=== PATIENT | male | born 1990 | race Caucasian/White ===

== ENCOUNTER 2017-08-28 16:40 | Emergency (ER) | payer BC ==
[2017-08-28 17:38] VITALS: BP 162/102
[2017-08-28] MEDS ORDERED: Tetan/Diph/Pertus SYR(Tdap)* 0.5 ML SYR(BOOSTRIX) use SYR IM ONE (17:44)
--- NOTE | 2017-08-28 18:13 | UC ---
Bite Injury/Animal HPI - HPI Summary HPI Summary: 27 YO MALE WAS MOWING HIS YARD [employer]HB[employer] DOG BIT HIM ON THE ANKLE (L) Td NOT UTD - History of Current Complaint Chief Complaint: UCBiteInjury Stated Complaint: DOGBITE LEFT ANKLE Time Seen by Provider: 08/28/17 18:01 Hx Obtained From: Patient Severity Currently: None Severity Initially: Mild Pain Intensity: 0 Pain Scale Used: 0-10 Numeric Onset/Duration: Sudden Onset Type of Bite: Animal Has Animal Been Immunized?: Yes Character: Puncture Aggravating Factor(s): Nothing Alleviating Factor(s): Nothing Associated Signs And Symptoms: Positive: Negative Hx of Bite: Provoked by: - [employer] Animal Available for Observation: Yes Animal Control Notified: Yes - Allergies/Home Medications Allergies/Adverse Reactions: Allergies Allergy/AdvReac Type Severity Reaction Status Date / Time shell fish Allergy Intermediate Hives Uncoded 08/28/17 17:39 Home Medications: Home Medications Omeprazole CAP* [Prilosec CAP* 20 MG] 20 mg PO DAILY PRN 08/28/17 [History Confirmed 08/28/17] PMH/Surg Hx/FS Hx/Imm Hx Previously Healthy: Yes Cardiovascular History: Hypertension - Surgical History Surgical History: Yes Surgery Procedure, Year, and Place: pilonidal cyst 2003- - Family History Known Family History: Positive: Hypertension Family History: NON CONTRIBUTORY - Social History Alcohol Use: Weekly Substance Use Type: None Smoking Status (MU): Light Every Day Tobacco Smoker Type: Cigarettes Amount Used/How Often: 5 cigs daily Have You Smoked in the Last Year: Yes - Immunization History Most Recent Tetanus Shot: UNKNOWN Review of Systems Constitutional: Negative Skin: Negative Eyes: Negative ENT: Negative Respiratory: Negative Cardiovascular: Negative Gastrointestinal: Negative Genitourinary: Negative Motor: Negative Neurovascular: Negative Musculoskeletal: Negative Neurological: Negative Psychological: Negative Is Patient Immunocompromised?: No All Other Systems Reviewed And Are Negative: Yes Physical Exam Triage Information Reviewed: Yes Appearance: Well-Appearing, No Pain Distress, Well-Nourished Vital Signs: Initial Vital Signs Temp 98.7 F 08/28/17 17:33 Pulse 111 08/28/17 17:33 Resp 18 08/28/17 17:33 BP 162/102 08/28/17 17:33 Pulse Ox 97 08/28/17 17:33 Vital Signs Reviewed: Yes Eyes: Positive: Conjunctiva Clear ENT: Positive: Hearing grossly normal. Negative: Nasal congestion, Nasal drainage, Trismus, Muffled voice, Hoarse voice Neck: Positive: Supple, Nontender Respiratory: Positive: Lungs clear, Normal breath sounds, No respiratory distress, No accessory muscle use Cardiovascular: Positive: RRR, No Murmur Musculoskeletal: Positive: ROM Intact, No Edema Neurological: Positive: Alert Psychological Exam: Normal Bite Injury Course/Dx - Differential Dx/Diagnosis Provider Diagnoses: DOG BITE LEFT ANKLE Discharge - Sign-Out/Discharge Documenting (check all that apply): Discharge/Admit/Transfer - Discharge Plan Condition: Stable Disposition: HOME Prescriptions: Amoxicillin/Clavulanate TAB* [Augmentin TAB 875*] 875 mg PO BID #6 tab Patient Education Materials: Animal Bite (ED) Referrals: Adriel Kelley MD [Primary Care Provider] - 5 Days (IF NOT BETTER) Additional Instructions: CLEAN TWICE DAILY WITH SOAP AND WATER RECHECK FOR ANY CONCERNS OF INFECTION RECHECK SATURDAY IF NOT BETTER - Billing Disposition and Condition Condition: STABLE Disposition: HOME Images Feet (Multiple View): 1 - SUPERFICIAL pw 2 - [employer]
== END 2017-08-28 18:13 | disposition home or self-care (01) ==
LOC: UCCORT 16:40
DX: S91.052A Open bite, left ankle, initial encounter (principal); W54.0XXA Bitten by dog, initial encounter; Y93.H2 Activity, gardening and landscaping; Y92.007 Garden or yard of unspecified non-institutional (private) residence as the place of occurrence of the external cause; I10 Essential (primary) hypertension; F17.210 Nicotine dependence, cigarettes, uncomplicated
CPT/HCPCS: 90471; 90715; 99212; G0463

== ENCOUNTER 2018-02-14 09:28 | Emergency (ER) | payer BC ==
[2018-02-14 11:00] VITALS: BP 137/84
--- NOTE | 2018-02-14 11:48 | UC ---
UC General HPI - HPI Summary HPI Summary: r ear pressure yesterday. today r ear pain. nasal congestion. - History of Current Complaint Chief Complaint: UCEar Stated Complaint: RIGHT EAR CONCERN Time Seen by Provider: 02/14/18 11:35 Hx Obtained From: Patient Onset/Duration: Gradual Onset Timing: Constant Pain Intensity: 6 Associated Signs & Symptoms: Negative: Fever, Headache - Allergy/Home Medications Allergies/Adverse Reactions: Allergies Allergy/AdvReac Type Severity Reaction Status Date / Time shell fish Allergy Intermediate Hives Uncoded 08/28/17 17:39 Home Medications: Home Medications Ibuprofen 600 mg PO ONCE 02/14/18 [History Confirmed 02/14/18] PMH/Surg Hx/FS Hx/Imm Hx Previously Healthy: Yes - Surgical History Surgical History: Yes Surgery Procedure, Year, and Place: pilonidal cyst 2003-08 - Family History Known Family History: Positive: Hypertension Family History: NON CONTRIBUTORY - Social History Occupation: Employed Full-time Alcohol Use: Weekly Substance Use Type: None Smoking Status (MU): Former Smoker Type: Cigarettes Amount Used/How Often: 5 cigs daily Have You Smoked in the Last Year: No - Immunization History Most Recent Tetanus Shot: UNKNOWN Vaccination Up to Date: Yes Review of Systems Constitutional: Negative Skin: Negative Eyes: Negative ENT: Ear Ache - R Respiratory: Negative Cardiovascular: Negative Gastrointestinal: Negative Genitourinary: Negative Motor: Negative Neurovascular: Negative Musculoskeletal: Negative Neurological: Negative Psychological: Negative Is Patient Immunocompromised?: No All Other Systems Reviewed And Are Negative: Yes Physical Exam Triage Information Reviewed: Yes Appearance: Well-Appearing Vital Signs: Initial Vital Signs Temp 97.8 F 02/14/18 10:54 Pulse 74 02/14/18 10:54 Resp 15 02/14/18 10:54 BP 137/84 02/14/18 10:54 Pulse Ox 98 02/14/18 10:54 Eyes: Positive: Conjunctiva Clear ENT: Positive: Pharynx normal, TMs normal - L, TM red - R-mild, Other - L canal clear but R deep red. No auricular adenopathy or mastoid tenderness.. Negative : Nasal congestion, Nasal drainage Neck: Positive: Supple, Nontender, No Lymphadenopathy Respiratory: Positive: Lungs clear, Normal breath sounds Cardiovascular: Positive: RRR, No Murmur Abdomen Description: Positive: Nontender, No Organomegaly, Soft Bowel Sounds: Positive: Present Musculoskeletal: Positive: ROM Intact Neurological: Positive: Alert Psychological: Positive: Age Appropriate Behavior Skin Exam: Normal Course/Dx - Differential Dx - Multi-Symptom Provider Diagnoses: R OM, R OE Discharge - Sign-Out/Discharge Documenting (check all that apply): Patient Departure All imaging exams completed and their final reports reviewed: No Studies - Discharge Plan Condition: Stable Disposition: HOME Prescriptions: Amoxicillin PO (*) [Amoxicillin 875 MG (*)] 875 mg PO BID 7 Days #14 tab Ciproflox/Dexameth OTIC.SUSP* [Ciprodex OTIC.SUSP*] 4 drop .SEE ORDER BID 7 Days #1 btl Patient Education Materials: Otitis Externa (ED), Ear Infection (ED) Referrals: GENOVEVA Gilmore [Medical Doctor] - Additional Instructions: follow up in 5-7 days if not better or sooner for any worsening. - Billing Disposition and Condition Condition: STABLE Disposition: Home
--- NOTE | 2018-02-14 18:06 | UC ---
- Progress Note Progress Note: PT NOT ABLE TO AFFORD THE CIPRODEX THUS CHANGED TO CORTISPORIN OTIC SUSPENSION Discharge - Sign-Out/Discharge Documenting (check all that apply): Patient Departure All imaging exams completed and their final reports reviewed: No Studies - Discharge Plan Condition: Stable Disposition: HOME Prescriptions: Amoxicillin PO (*) [Amoxicillin 875 MG (*)] 875 mg PO BID 7 Days #14 tab Ciproflox/Dexameth OTIC.SUSP* [Ciprodex OTIC.SUSP*] 4 drop .SEE ORDER BID 7 Days #1 btl Patient Education Materials: Otitis Externa (ED), Ear Infection (ED) Referrals: GENOVEVA Gilmore [Medical Doctor] - Additional Instructions: follow up in 5-7 days if not better or sooner for any worsening. - Billing Disposition and Condition Condition: STABLE Disposition: Home
== END 2018-02-14 11:52 | disposition home or self-care (01) ==
LOC: UCCORT 09:28
DX: H66.91 Otitis media, unspecified, right ear (principal); H60.91 Unspecified otitis externa, right ear; Z87.891 Personal history of nicotine dependence
CPT/HCPCS: 99212; G0463